=== PATIENT | female | born 1985 | race Caucasian/White ===

== ENCOUNTER 2017-02-05 20:46 | Emergency (ER) | payer BC, OTHER ==
[~2017-02-05] VITALS: Ht 157.5 cm; Wt 94.9 kg
[~2017-02-05 20:46] MED LIST: PREN0.01 PO
[2017-02-05 20:49] VITALS: BP 142/82; PULSE 90; RESP 14; TEMP 98.2; O2SAT 100
--- NOTE | 2017-02-05 21:42 | PD ---
HPI Chief Complaint: Cold / Flu Symptoms Time Seen by Provider: 21:35 Travel History International Travel<30 days: No Contact w/Intl Traveler<30days: No Traveled to known affect area: No History of Present Illness HPI 31-year-old female presents to the emergency department for complaint of fever chills myalgias arthralgias headache sore throat nonproductive cough and fatigue. Patient states symptoms have been present for 3 days. Patient called her doctor's office today after 1 PM in the office was closed so presents now for further evaluation. Patient states that she is scheduled to go to work but could not return to work until she is been evaluated in the hospital. Patient also notes that she has some lymph node prominence to the side of her neck bilaterally. Patient also history is significant for Evonne's thyroiditis and takes no medications. Patient denies dysuria frequency urgency flank pain hematuria and states she is not . Patient rates overall pain 3/10 in intensity. PFSH Past Medical History Narrative Medical Depression, thyroid disease, polycystic ovary syndrome, migraines; left breast cyst excision; no tobacco use Hx Anticoagulant Therapy: No Anxiety: No Depression: Yes (post ) Cancer: No Cardiovascular Problems: No Chemotherapy: No Cerebrovascular Accident: No Diabetes: No Diminished Hearing: No Endocrine: No Medical other: Yes (Hashimotos ) Musculoskeletal: No Neurologic: No Psychiatric: Yes Reproductive: Yes (POLYCYSTIC OVARIAN SYNDROME, bichornuate uterus) Respiratory: No Immunizations Current: Yes Migraines: Yes Tetanus Vaccination: > 5 Years Influenza Vaccination: No ?: Unknown LMP: Two months ago : 2 Para: 2 Ovarian Cysts: Yes Past Surgical History Section: Yes Other Surgery: Yes (left breast cysts removed) Social History Alcohol Use: No Tobacco Use: No Substance Use: No Allergies-Medications (Allergen,Severity, Reaction): Coded Allergies: Bactrim (Verified Allergy, Severe, HIVES, 02/05/17) Reported Meds & Prescriptions Reported Meds & Active Scripts Active Review of Systems Except as stated in HPI: all other systems reviewed are Neg General / Constitutional: Positive: Fever HENT: Positive: Headaches, Sore Throat, Congestion, Masses Cardiovascular: No: Chest Pain or Discomfort (lymph nodes) Respiratory: Positive: Cough, No: Shortness of Breath Gastrointestinal: Positive: Nausea, No: Vomiting, Abdominal Pain Genitourinary: No: Dysuria, Flank Pain Musculoskeletal: Positive: Myalgias, Arthralgias Skin: No Rash Neurologic: No: Weakness Psychiatric: No: Anxiety Hematologic/Lymphatic: Positive: Lymph Node Enlargement Physical Exam Narrative GENERAL: Well-developed well-nourished female in no acute distress no respiratory distress SKIN: Warm and dry. HEAD: Normocephalic. EYES: No scleral icterus. No injection or drainage. NECK: Supple, trachea midline. No JVD.bilateral anterior cervical chain lymphadenopathy; no palpable thyromegaly. CARDIOVASCULAR: Regular rate and rhythm without murmurs, gallops, or rubs. RESPIRATORY: Breath sounds equal bilaterally. No accessory muscle use. GASTROINTESTINAL: Abdomen soft, non-tender, nondistended. MUSCULOSKELETAL: No cyanosis, or edema. BACK: Nontender without obvious deformity. No CVA tenderness. Data Data Last Documented VS Vital Signs Date Time Temp Pulse Resp B/P Pulse Ox O2 Delivery O2 Flow Rate FiO2 02/05/17 22:00 81 18 138/77 100 Room Air 02/05/17 20:49 98.2 Orders Complete Blood Count With Diff (02/05/17 21:35) Basic Metabolic Panel (Bmp) (02/05/17 21:35) Monoscreen (02/05/17 21:35) Group A Rapid Strep Screen (02/05/17 21:35) Influenzae A/B Antigen (02/05/17 21:35) Chest, Single Ap (02/05/17 21:35) Iv Access Insert/Monitor (02/05/17 21:35) Oximetry (02/05/17 21:35) Sodium Chloride 0.9% Flush (Ns Flush) (02/05/17 21:45) Ed Urine Pregnancytest Poc (02/05/17 21:35) Thyroid Stimulating Hormone (02/05/17 21:35) Strep Culture (Group A) (02/05/17 21:45) Labs Laboratory Tests Test 02/05/17 21:50 White Blood Count 10.1 TH/MM3 Red Blood Count 4.95 MIL/MM3 Hemoglobin 13.0 GM/DL Hematocrit 39.1 % Mean Corpuscular Volume 79.0 FL Mean Corpuscular Hemoglobin 26.2 PG Mean Corpuscular Hemoglobin 33.2 % Concent Red Cell Distribution Width 14.5 % Platelet Count 406 TH/MM3 Mean Platelet Volume 6.6 FL Neutrophils (%) (Auto) 47.5 % Lymphocytes (%) (Auto) 35.0 % Monocytes (%) (Auto) 14.5 % Eosinophils (%) (Auto) 2.6 % Basophils (%) (Auto) 0.4 % Neutrophils # (Auto) 4.8 TH/MM3 Lymphocytes # (Auto) 3.5 TH/MM3 Monocytes # (Auto) 1.5 TH/MM3 Eosinophils # (Auto) 0.3 TH/MM3 Basophils # (Auto) 0.0 TH/MM3 CBC Comment DIFF FINAL Differential Comment Sodium Level 141 MEQ/L Potassium Level 3.6 MEQ/L Chloride Level 105 MEQ/L Carbon Dioxide Level 28.3 MEQ/L Anion Gap 8 MEQ/L Blood Urea Nitrogen 14 MG/DL Creatinine 0.62 MG/DL Estimat Glomerular Filtration 113 ML/MIN Rate Random Glucose 93 MG/DL Calcium Level 9.0 MG/DL Thyroid Stimulating Hormone 3.230 uIU/ML 3rd Gen Monoscreen NEG MDM Medical Decision Making Medical Screen Exam Complete: Yes Emergency Medical Condition: Yes Medical Record Reviewed: Yes Interpretation(s) poc hcg: negative rsa: negative influenza: negative tsh: wnl, 3.230 monospot: negative Last Impressions Chest X-Ray 02/05/172134 Signed Impressions: Service Date/Time: Sunday, February 05, 2017 22:09 - CONCLUSION: No evidence of acute cardiopulmonary disease. Brett Garcia MD CBC & BMP Diagram 02/05/17 21:50 Vital Signs Date Time Temp Pulse Resp B/P Pulse Ox O2 Delivery O2 Flow Rate FiO2 02/05/17 22:00 81 18 138/77 100 Room Air 02/05/17 21:50 100 Room Air 02/05/17 21:28 18 100 Room Air 02/05/17 20:49 98.2 90 14 142/82 100 Differential Diagnosis Upper respiratory infection, viral syndrome, to consider strep pharyngitis, mononucleosis, influenza, thyroid dysfunction, , UTI Narrative Course IV access obtained specimens questions sent for resulting At 10:35 PM patient resting comfortably waiting pending lab work; to this point lab values grossly normal range except for mild monocytosis by CBC with automated differential, metabolic panel within normal limits TSH within normal range reported. HCG is negative influenza test negative Chest x-ray no lobar infiltrate Patient resting comfortably voicing no concerns or complaints It is now 11:35 PM lab values are resulted and found to be grossly normal range Monospot is negative Patient is clinically stable for outpatient management and follow-up with her primary care provider Diagnosis Primary Impression: URI (upper respiratory infection) Qualified Code: J06.9 - Upper respiratory tract infection, unspecified type Referrals: Primary Care Physician call for appointment Patient Instructions: General Instructions Departure Forms: Tests/Procedures, Work Release Special Instructions: no work x 1 day Additional Instructions: Increase fluid hydration Take acetaminophen/Tylenol as needed for fever 100.4F or greater May take ibuprofen/Advil/Motrin every 6-8 hours as needed for fever 100.4F or greater for pain associated with inflammation Follow-up with primary care provider call office on Wednesday Return to the emergency department for any concerns or change in condition Med/Other Pt SpecificInfo: No Meds Exist/No RX given Disposition: DISCHARGE HOME Condition: Stable Genet Prajapati MD February 05, 2017 21:42
[2017-02-05] MEDS ORDERED: SODIUM CHLORIDE 0.9% FLUSH 10 ML FLUSH IVF PRN (21:45)
[2017-02-05 21:50] VITALS: O2SAT 100
[2017-02-05 22:00] VITALS: BP 138/77; PULSE 81; RESP 18; O2SAT 100
[2017-02-05 22:05] LABS: AUTOMATED NEUTROPHIL # 4.8 TH/MM3 (1.8-7.7); BASOPHIL % 0.4 % (0.0-2.0); EOSINOPHIL # 0.3 TH/MM3 (0-0.4); EOSINOPHIL % 2.6 % (0.0-4.0); HEMATOCRIT 39.1 % (35.0-46.0); HEMO FLAGS DIFF FINAL; LYMPHOCYTE # 3.5 TH/MM3 (1.0-4.8); MEAN CORPUSCULAR HEMOGLOBIN 26.2 PG (27.0-34.0); MEAN CORPUSCULAR HGB CONC 33.2 % (32.0-36.0); MONO % 14.5 % (0.0-8.0); NEUT % 47.5 % (16.0-70.0); PLATELET COUNT 406 TH/MM3 (150-450); RED BLOOD COUNT 4.95 MIL/MM3 (4.00-5.30); RED CELL DISTRIBUTION WIDTH 14.5 % (11.6-17.2); WHITE BLOOD COUNT 10.1 TH/MM3 (4.0-11.0)
[2017-02-05 22:11] LABS: POTASSIUM 3.6 MEQ/L (3.5-5.1)
[2017-02-05 22:14] LABS: BICARBONATE 28.3 MEQ/L (21.0-32.0)
--- NOTE | 2017-02-05 22:16 | RADHPO ---
EXAM DATE/TIME: 02/05/2017 22:09 [facility] COMPARISON: No previous studies available for comparison. INDICATIONS : Fever. MEDICAL HISTORY : None. SURGICAL HISTORY : Left breast lumpectomy ENCOUNTER: Initial ACUITY: 3 days PAIN SCORE: 4/10 LOCATION: Bilateral chest FINDINGS: A single view of the chest demonstrates the lungs to be symmetrically aerated without evidence of mas s, infiltrate or effusion. The cardiomediastinal contours are unremarkable. Osseous structures are intact. CONCLUSION: No evidence of acute cardiopulmonary disease. Brett Garcia MD on February 05, 2017 at 22:13 Board Certified Radiologist. This report was verified electronically.
[2017-02-05 23:53] VITALS: BP 131/76
== END 2017-02-05 23:54 | disposition home or self-care (01) ==
LOC: PHED 20:46
DX: J06.9 Acute upper respiratory infection, unspecified (principal); E28.2 Polycystic ovarian syndrome; E07.9 Disorder of thyroid, unspecified; E06.3 Autoimmune thyroiditis
CPT/HCPCS: 71010; 80048; 84443; 84703; 85025; 86308; 87081; 87804; 87880; 99283

== ENCOUNTER 2017-06-06 19:31 | Emergency (ER) | payer OTHER ==
[~2017-06-06] VITALS: Ht 157.5 cm; Wt 96.9 kg
[2017-06-06 20:01] VITALS: BP 135/71; PULSE 77; RESP 18; TEMP 98; O2SAT 99
[2017-06-06] MEDS ORDERED: ASPI81CH37 CHEW (20:21)
[2017-06-06] MEDS ORDERED: LEVO25TA4 PO (20:21)
--- NOTE | 2017-06-06 20:27 | PD ---
HPI Chief Complaint: chest pain since February Time Seen by Provider: 20:13 Travel History International Travel<30 days: No Contact w/Intl Traveler<30days: No Traveled to known affect area: No History of Present Illness HPI The patient is a 31-year-old female that complains of chest pain since February. The pain lasts several seconds, is in the mid upper sternal area and feels like someone is sitting on her chest. She denies any nausea, shortness of breath, diaphoresis or radiation of pain. She does not have a history of heart disease and an early age among her family members, hypertension, diabetes or elevated cholesterol. She has been worked up by rn hospital and apparently nothing was found. She also states she gets lightheaded-no vertigo. She also noticed that occasionally her heart beats fast but she thinks this may be anxiety. She states she is under stress working for [employer]. PFSH Past Medical History Hx Anticoagulant Therapy: No Anxiety: No Depression: Yes (post ) Cancer: No Cardiovascular Problems: No Chemotherapy: No Cerebrovascular Accident: No Diabetes: No Diminished Hearing: No Endocrine: No Musculoskeletal: No Neurologic: No Psychiatric: Yes Reproductive: Yes (POLYCYSTIC OVARIAN SYNDROME, bichornuate uterus) Respiratory: No Immunizations Current: Yes Migraines: Yes : 2 Para: 2 Ovarian Cysts: Yes Past Surgical History Section: Yes Other Surgery: Yes (left breast cysts removed) Social History Alcohol Use: No Tobacco Use: No Substance Use: No Allergies-Medications (Allergen,Severity, Reaction): Coded Allergies: sulfamethoxazole (Unverified Allergy, Severe, HIVES, 06/06/17) Reported Meds & Prescriptions Reported Meds & Active Scripts Active Vistaril (Hydroxyzine Pamoate) 25 Mg Cap 25 Mg PO TID PRN Reported Aspirin Low Dose (Aspirin) 81 Mg Chew 81 Mg CHEW DAILY PRN Levothyroxine (Levothyroxine Sodium) 25 Mcg Tab 25 Mcg PO DAILY Review of Systems Except as stated in HPI: all other systems reviewed are Neg Physical Exam Narrative GENERAL: The patient appears slightly anxious, alert, oriented 3 in no apparent distress. Her vital signs are normal. SKIN: Focused skin assessment warm/dry. No skin rash is present. HEAD: Atraumatic. Normocephalic. EYES: Pupils equal and round. No scleral icterus. No injection or drainage. ENT: No nasal bleeding or discharge. Mucous membranes pink and moist. NECK: Trachea midline. No JVD. CARDIOVASCULAR: Regular rate and rhythm. No murmur appreciated. RESPIRATORY: No accessory muscle use. Clear to auscultation. Breath sounds equal bilaterally. I cannot reproduce the chest pain by pressing on the chest wall. GASTROINTESTINAL: Abdomen soft, non-tender, nondistended. Hepatic and splenic margins not palpable. MUSCULOSKELETAL: No obvious deformities. No clubbing. No cyanosis. No edema. NEUROLOGICAL: Awake and alert. No obvious cranial nerve deficits. Motor grossly within normal limits. Normal speech. PSYCHIATRIC: The patient appears slightly anxious; insight and judgment normal. Data Data Last Documented VS Vital Signs Date Time Temp Pulse Resp B/P (MAP) Pulse Ox O2 Delivery O2 Flow Rate FiO2 06/06/17 20:51 87 17 118/67 (84) 99 06/06/17 20:01 98.0 Orders Orders Electrocardiogram (06/06/17 20:21) Complete Blood Count With Diff (06/06/17 20:21) Basic Metabolic Panel (Bmp) (06/06/17 20:21) Troponin I (06/06/17 20:21) Labs Laboratory Tests Test 06/06/17 20:32 White Blood Count 12.4 TH/MM3 Red Blood Count 4.81 MIL/MM3 Hemoglobin 13.2 GM/DL Hematocrit 39.3 % Mean Corpuscular Volume 81.7 FL Mean Corpuscular Hemoglobin 27.4 PG Mean Corpuscular Hemoglobin Concent 33.5 % Red Cell Distribution Width 13.4 % Platelet Count 430 TH/MM3 Mean Platelet Volume 6.7 FL Neutrophils (%) (Auto) 58.0 % Lymphocytes (%) (Auto) 31.6 % Monocytes (%) (Auto) 6.2 % Eosinophils (%) (Auto) 3.3 % Basophils (%) (Auto) 0.9 % Neutrophils # (Auto) 7.2 TH/MM3 Lymphocytes # (Auto) 3.9 TH/MM3 Monocytes # (Auto) 0.8 TH/MM3 Eosinophils # (Auto) 0.4 TH/MM3 Basophils # (Auto) 0.1 TH/MM3 CBC Comment DIFF FINAL Differential Comment Blood Urea Nitrogen 14 MG/DL Creatinine 0.65 MG/DL Random Glucose 92 MG/DL Calcium Level 9.4 MG/DL Sodium Level 137 MEQ/L Potassium Level 4.0 MEQ/L Chloride Level 103 MEQ/L Carbon Dioxide Level 27.1 MEQ/L Anion Gap 7 MEQ/L Estimat Glomerular Filtration Rate 107 ML/MIN Troponin I LESS THAN 0.02 NG/ML MDM Medical Decision Making Medical Screen Exam Complete: Yes Emergency Medical Condition: Yes Medical Record Reviewed: Yes Interpretation(s) The EKG shows a sinus rhythm with a rate of [address] elevation or depression. The basic metabolic profile is normal and the troponin I is normal. The CBC is normal except for a minimal elevation of the white count at 12,400. Differential Diagnosis Atypical chest pain, acute cord syndrome-unlikely, chest wall pain, pleuritic pain, esophageal pain, gastrointestinal pain Narrative Course The patient's chest pain is atypical in that it is lasting only several seconds. Her cardiac enzymes are normal and EKG is normal. She has no significant risk factors. The patient also has anxiety Impression: Atypical chest pain, anxiety Diagnosis Primary Impression: Atypical chest pain Additional Impression: Anxiety about health Additional Instructions: The Vistaril is one tablet 3 times a day as needed for anxiety. Follow up with your primary care physician next week. Med/Other Pt SpecificInfo: Prescription(s) given Scripts Hydroxyzine Pamoate (Vistaril) 25 Mg Cap 25 MG PO TID Y for ANXIETY, #30 CAP 0 Refills Prov: Spenser Bella MD 06/06/17 Disposition: 01 DISCHARGE HOME Condition: Stable Spenser Bella MD Jun 06, 2017 20:27
[2017-06-06 20:41] LABS: AUTOMATED NEUTROPHIL # 7.2 TH/MM3 (1.8-7.7); BASOPHIL # 0.1 TH/MM3 (0-0.2); BASOPHIL % 0.9 % (0.0-2.0); EOSINOPHIL # 0.4 TH/MM3 (0-0.4); EOSINOPHIL % 3.3 % (0.0-4.0); HEMATOCRIT 39.3 % (35.0-46.0); HEMO FLAGS DIFF FINAL; LYMPH % 31.6 % (9.0-44.0); LYMPHOCYTE # 3.9 TH/MM3 (1.0-4.8); MEAN CELL VOLUME 81.7 FL (80.0-100.0); MEAN CORPUSCULAR HEMOGLOBIN 27.4 PG (27.0-34.0); MEAN CORPUSCULAR HGB CONC 33.5 % (32.0-36.0); MONO % 6.2 % (0.0-8.0); PLATELET COUNT 430 TH/MM3 (150-450); RED BLOOD COUNT 4.81 MIL/MM3 (4.00-5.30); RED CELL DISTRIBUTION WIDTH 13.4 % (11.6-17.2); WHITE BLOOD COUNT 12.4 TH/MM3 (4.0-11.0)
[2017-06-06 20:51] VITALS: BP 118/67; PULSE 87; RESP 17; O2SAT 99
[2017-06-06 20:55] LABS: CHLORIDE 103 MEQ/L (98-107); SODIUM (NA) 137 MEQ/L (136-145)
[2017-06-06 20:58] LABS: ANION GAP 7 MEQ/L (5-15); BICARBONATE 27.1 MEQ/L (21.0-32.0); BLOOD UREA NITROGEN 14 MG/DL (7-18)
[2017-06-06 21:01] LABS: GLOMERULAR FILTRATION RATE 107 ML/MIN (>89)
[2017-06-06] MEDS ORDERED: VIST25CA PO (21:20)
[2017-06-06 21:50] VITALS: BP 118/62; PULSE 76; RESP 17; TEMP 98.3; O2SAT 100
--- NOTE | 2017-06-07 20:08 | EKG ---
Date Performed: 06/06/2017 Time Performed: 20:27:34 PTAGE: 31 years EKG: Sinus rhythm POSSIBLE LEFT ATRIAL ENLARGEMENT POSSIBLE RIGHT VENTRICULAR CONDUCTION DELAY BORDERLINE ECG PREVIOUS TRACING : 12/29/2009 21.23 DOCTOR: Paolo Stewart Interpretating Date/Time 06/07/2017 20:05:11
== END 2017-06-06 22:04 | disposition home or self-care (01) ==
LOC: PHED 19:31
DX: R07.89 Other chest pain (principal); F41.9 Anxiety disorder, unspecified
CPT/HCPCS: 80048; 84484; 85025; 93005; 99284

== ENCOUNTER 2017-09-19 09:47 | Emergency (ER) | payer OTHER ==
[~2017-09-19] VITALS: Ht 157.5 cm; Wt 95.7 kg
[~2017-09-19 09:47] MED LIST changes: +ASPI81CH6 CHEW; +LEVO25TA4 PO; -PREN0.01 PO; +VIST25CA PO
[2017-09-19 09:57] VITALS: BP 139/70; PULSE 109; RESP 16; TEMP 98.5; O2SAT 97
[2017-09-19 12:15] VITALS: O2SAT 98
[2017-09-19] MEDS ORDERED: SODIUM CHLOR 0.9% 1000 ML INJ 1,000 ML IV SCH (12:17)
--- NOTE | 2017-09-19 12:21 | PD ---
HPI Chief Complaint: GI Complaint Time Seen by Provider: 12:11 Travel History International Travel<30 days: No Contact w/Intl Traveler<30days: No Traveled to known affect area: No History of Present Illness HPI The patient is a 31-year-old female who presents to the emergency department for nausea, vomiting, diarrhea, and intermittent crampy abdominal pain that started last night at 6 PM. The patient states she went to dinner last night, had shrimp, then developed symptoms. However, she states her had similar food with no symptoms. The patient developed some epigastric abdominal pain that was followed by nausea and vomiting and then subsequently developed diarrhea. The patient describes his vomiting is nonbloody, nonbilious and the diarrhea has no visible blood. The abdominal cramping is intermittent. She does have a history of 2 previous sections. She does complain of subjective fever at home and states her checked her temperature which was 100.6. She denies any known sick contacts. She denies any history of Crohn's disease, ulcerative colitis, or previous episodes of colitis. Symptoms are moderate without any alleviating or exacerbating factors. The patient also complains of a mild headache and myalgias. PFSH Past Medical History Hx Anticoagulant Therapy: No Anxiety: No Depression: Yes (post ) Cancer: No Cardiovascular Problems: No Chemotherapy: No Cerebrovascular Accident: No Diabetes: No Diminished Hearing: No Endocrine: No Musculoskeletal: No Neurologic: No Psychiatric: Yes Reproductive: Yes (POLYCYSTIC OVARIAN SYNDROME, bichornuate uterus) Respiratory: No Immunizations Current: Yes Migraines: Yes Thyroid Disease: Yes (Hoshimotos) ?: Not : 2 Para: 2 Ovarian Cysts: Yes Past Surgical History Section: Yes Gynecologic Surgery: Yes (2 c-sections) Other Surgery: Yes (left breast cysts removed - non-mailignant) Social History Alcohol Use: No Tobacco Use: No Substance Use: No Allergies-Medications (Allergen,Severity, Reaction): Coded Allergies: sulfamethoxazole (Unverified Allergy, Severe, HIVES, 09/19/17) Reported Meds & Prescriptions Reported Meds & Active Scripts Active Review of Systems Except as stated in HPI: all other systems reviewed are Neg General / Constitutional: Positive: Fever Cardiovascular: No: Chest Pain or Discomfort Respiratory: No: Shortness of Breath Gastrointestinal: Positive: Nausea, Vomiting, Diarrhea, Abdominal Pain Genitourinary: No: Dysuria Musculoskeletal: Positive: Myalgias, Weakness Neurologic: No: Dizziness Physical Exam Narrative GENERAL: Awake, alert, pleasant 31-year-old female who appears her stated age and is in no acute respiratory distress. SKIN: Focused skin assessment warm/dry. HEAD: Atraumatic. Normocephalic. EYES: Pupils equal and round. No scleral icterus. No injection or drainage. ENT: No nasal bleeding or discharge. Dry mucous membranes. NECK: Trachea midline. No JVD. CARDIOVASCULAR: Regular, tachycardic with a heart rate of 105. RESPIRATORY: No accessory muscle use. Clear to auscultation. Breath sounds equal bilaterally. GASTROINTESTINAL: Abdomen soft, mild epigastric tenderness. No guarding or rigidity. Negative Willis's. Negative McBurney's. MUSCULOSKELETAL: No obvious deformities. No clubbing. No cyanosis. No edema. NEUROLOGICAL: Awake and alert. No obvious cranial nerve deficits. Motor grossly within normal limits. Normal speech. PSYCHIATRIC: Appropriate mood and affect; insight and judgment normal. Data Data Last Documented VS Vital Signs Date Time Temp Pulse Resp B/P (MAP) Pulse Ox O2 Delivery O2 Flow Rate FiO2 09/19/17 09:57 98.5 109 16 139/70 (93) 97 Orders Orders Complete Blood Count With Diff (09/19/17 12:17) Comprehensive Metabolic Panel (09/19/17 12:17) Lipase (09/19/17 12:17) Urinalysis - C+S If Indicated (09/19/17 12:17) Iv Access Insert/Monitor (09/19/17 12:17) Ecg Monitoring (09/19/17 12:17) Oximetry (09/19/17 12:17) Ondansetron Inj (Zofran Inj) (09/19/17 12:30) Sodium Chlor 0.9% 1000 Ml Inj (Ns 1000 M (09/19/17 12:17) Sodium Chloride 0.9% Flush (Ns Flush) (09/19/17 12:30) Famotidine Inj (Pepcid Inj) (09/19/17 12:30) Ketorolac Inj (Toradol Inj) (09/19/17 12:30) Sodium Chlor 0.9% 1000 Ml Inj (Ns 1000 M (09/19/17 12:30) Potassium Chloride (Kcl) (09/19/17 13:45) Labs Laboratory Tests Test 09/19/17 12:45 White Blood Count 13.8 TH/MM3 Red Blood Count 5.01 MIL/MM3 Hemoglobin 13.7 GM/DL Hematocrit 40.8 % Mean Corpuscular Volume 81.3 FL Mean Corpuscular Hemoglobin 27.3 PG Mean Corpuscular Hemoglobin Concent 33.6 % Red Cell Distribution Width 12.9 % Platelet Count 331 TH/MM3 Mean Platelet Volume 7.6 FL Neutrophils (%) (Auto) 79.0 % Lymphocytes (%) (Auto) 10.7 % Monocytes (%) (Auto) 6.8 % Eosinophils (%) (Auto) 0.0 % Basophils (%) (Auto) 3.5 % Neutrophils # (Auto) 10.9 TH/MM3 Lymphocytes # (Auto) 1.5 TH/MM3 Monocytes # (Auto) 0.9 TH/MM3 Eosinophils # (Auto) 0.0 TH/MM3 Basophils # (Auto) 0.5 TH/MM3 CBC Comment DIFF FINAL Differential Comment Urine Collection Type CLEAN CATCH Urine Color YELLOW Urine Turbidity SLIGHT Urine pH 6.0 Urine Specific [place] 1.032 Urine Protein TRACE mg/dL Urine Glucose (UA) NEG mg/dL Urine Ketones NEG mg/dL Urine Occult Blood MOD Urine Nitrite NEG Urine Bilirubin NEG Urine Leukocyte Esterase NEG Urine RBC 20-24 /hpf Urine WBC 0-2 /hpf Urine Squamous Epithelial Cells > 8 /hpf Urine Amorphous Sediment MOD Microscopic Urinalysis Comment CULT NOT INDICATED Urine Collection Time 1248 Blood Urea Nitrogen 11 MG/DL Creatinine 0.77 MG/DL Random Glucose 109 MG/DL Total Protein 8.9 GM/DL Albumin 3.9 GM/DL Calcium Level 8.8 MG/DL Alkaline Phosphatase 124 U/L Aspartate Amino Transf (AST/SGOT) 15 U/L Alanine Aminotransferase (ALT/SGPT) 28 U/L Total Bilirubin 0.9 MG/DL Sodium Level 135 MEQ/L Potassium Level 3.3 MEQ/L Chloride Level 100 MEQ/L Carbon Dioxide Level 25.6 MEQ/L Anion Gap 9 MEQ/L Estimat Glomerular Filtration Rate 88 ML/MIN Lipase 89 U/L MDM Medical Decision Making Medical Screen Exam Complete: Yes Emergency Medical Condition: Yes Medical Record Reviewed: Yes Interpretation(s) Laboratory Tests Test 09/19/17 12:45 White Blood Count 13.8 TH/MM3 Red Blood Count 5.01 MIL/MM3 Hemoglobin 13.7 GM/DL Hematocrit 40.8 % Mean Corpuscular Volume 81.3 FL Mean Corpuscular Hemoglobin 27.3 PG Mean Corpuscular Hemoglobin Concent 33.6 % Red Cell Distribution Width 12.9 % Platelet Count 331 TH/MM3 Mean Platelet Volume 7.6 FL Neutrophils (%) (Auto) 79.0 % Lymphocytes (%) (Auto) 10.7 % Monocytes (%) (Auto) 6.8 % Eosinophils (%) (Auto) 0.0 % Basophils (%) (Auto) 3.5 % Neutrophils # (Auto) 10.9 TH/MM3 Lymphocytes # (Auto) 1.5 TH/MM3 Monocytes # (Auto) 0.9 TH/MM3 Eosinophils # (Auto) 0.0 TH/MM3 Basophils # (Auto) 0.5 TH/MM3 CBC Comment DIFF FINAL Differential Comment Urine Collection Type CLEAN CATCH Urine Color YELLOW Urine Turbidity SLIGHT Urine pH 6.0 Urine Specific [place] 1.032 Urine Protein TRACE mg/dL Urine Glucose (UA) NEG mg/dL Urine Ketones NEG mg/dL Urine Occult Blood MOD Urine Nitrite NEG Urine Bilirubin NEG Urine Leukocyte Esterase NEG Urine RBC 20-24 /hpf Urine WBC 0-2 /hpf Urine Squamous Epithelial Cells > 8 /hpf Urine Amorphous Sediment MOD Microscopic Urinalysis Comment CULT NOT INDICATED Urine Collection Time 1248 Blood Urea Nitrogen 11 MG/DL Creatinine 0.77 MG/DL Random Glucose 109 MG/DL Total Protein 8.9 GM/DL Albumin 3.9 GM/DL Calcium Level 8.8 MG/DL Alkaline Phosphatase 124 U/L Aspartate Amino Transf (AST/SGOT) 15 U/L Alanine Aminotransferase (ALT/SGPT) 28 U/L Total Bilirubin 0.9 MG/DL Sodium Level 135 MEQ/L Potassium Level 3.3 MEQ/L Chloride Level 100 MEQ/L Carbon Dioxide Level 25.6 MEQ/L Anion Gap 9 MEQ/L Estimat Glomerular Filtration Rate 88 ML/MIN Lipase 89 U/L Differential Diagnosis Differential diagnosis includes gastroenteritis, food poisoning, gastritis, enteritis, colitis, influenza, viral syndrome. Narrative Course IV was established, labs are drawn and sent, and the patient was placed on cardiac telemetry monitoring and continuous pulse oximetry monitoring. The patient was administered 2 L of IV fluids, Zofran, Pepcid, and Toradol. The patient's potassium was low at 3.3, therefore, was replaced orally. White count is mildly elevated at 13.8. LFTs and lipase are unremarkable. UA reveals a few RBCs, no evidence of pyelonephritis. The patient was reevaluated at 1:27 PM. The patient's symptoms have improved, she will be discharged home on Zofran is advised to have a clear liquid diet and advance as tolerated. The patient states she works for [employer] and must have a work excuse for 7 consecutive workdays, otherwise it will count against her. Therefore, patient will be given a work excuse for one week. She is advised to have clear liquids , advance as tolerated, Zofran as needed, plenty of fluids to stay hydrated. Return if symptoms worsen or progress. Diagnosis Primary Impression: Gastroenteritis Patient Instructions: General Instructions Additional Instructions: Work excuse for 1 week's duration. Plenty fluids to stay hydrated. Clear liquid diet and advance as tolerated. Follow-up with a primary physician. Return if symptoms worsen or progress. Med/Other Pt SpecificInfo: Prescription(s) given Scripts Ondansetron Odt (Zofran Odt) 4 Mg Tab 4 MG SL Q6HR Y for Nausea/Vomiting, #10 TAB 0 Refills Prov: Tai Dillon MD 09/19/17 Disposition: 01 DISCHARGE HOME Condition: Stable Tai Dillon MD Sep 19, 2017 12:21
[2017-09-19] MEDS ORDERED: SODIUM CHLOR 0.9% 1000 ML INJ 1,000 ML IV ONE (12:30)
[2017-09-19] MEDS ORDERED: FAMOTIDINE 20 MG/2 ML VIAL IV PUSH ONE (12:30)
[2017-09-19] MEDS ORDERED: SODIUM CHLORIDE 0.9% FLUSH 10 ML FLUSH IV FLUSH PRN (12:30)
[2017-09-19] MEDS ORDERED: KETOROLAC TROMETHAMINE 30 MG/ML (IVP) VIAL IVP ONE (12:30)
[2017-09-19] MEDS ORDERED: ONDANSETRON HCL 4 MG/2 ML VIAL IVP ONE (12:30)
[2017-09-19 12:57] LABS: AUTOMATED NEUTROPHIL # 10.9 TH/MM3 (1.8-7.7); BASOPHIL # 0.5 TH/MM3 (0-0.2); BASOPHIL % 3.5 % (0.0-2.0); HEMATOCRIT 40.8 % (35.0-46.0); HEMOGLOBIN 13.7 GM/DL (11.6-15.3); LYMPH % 10.7 % (9.0-44.0); LYMPHOCYTE # 1.5 TH/MM3 (1.0-4.8); MEAN CELL VOLUME 81.3 FL (80.0-100.0); MEAN CORPUSCULAR HEMOGLOBIN 27.3 PG (27.0-34.0); MEAN CORPUSCULAR HGB CONC 33.6 % (32.0-36.0); MEAN PLATELET VOLUME 7.6 FL (7.0-11.0); MONO % 6.8 % (0.0-8.0); MONOCYTE # 0.9 TH/MM3 (0-0.9); PLATELET COUNT 331 TH/MM3 (150-450); RED BLOOD COUNT 5.01 MIL/MM3 (4.00-5.30); RED CELL DISTRIBUTION WIDTH 12.9 % (11.6-17.2); WHITE BLOOD COUNT 13.8 TH/MM3 (4.0-11.0)
[2017-09-19 13:08] LABS: BILIRUBIN, URINE NEG (NEG); BLOOD, URINE MOD (NEG); CHLORIDE 100 MEQ/L (98-107); GLUCOSE,URINE NEG (NEG); KETONE, URINE NEG (NEG); NITRITE,URINE NEG (NEG); SODIUM (NA) 135 MEQ/L (136-145); URINE LEUKOCYTE ESTERASE NEG (NEG)
[2017-09-19 13:13] LABS: ALBUMIN 3.9 GM/DL (3.4-5.0); BICARBONATE 25.6 MEQ/L (21.0-32.0); BLOOD UREA NITROGEN 11 MG/DL (7-18); CALCIUM 8.8 MG/DL (8.5-10.1); GLUCOSE,RANDOM 109 MG/DL (74-106); LIPASE 89 U/L (73-393)
[2017-09-19 13:16] LABS: ALT (GPT) 28 U/L (10-53); AST (GOT) 15 U/L (15-37); CREATININE 0.77 MG/DL (0.50-1.00); GLOMERULAR FILTRATION RATE 88 ML/MIN (>89)
[2017-09-19 13:18] LABS: TOTAL BILIRUBIN ADULT 0.9 MG/DL (0.2-1.0); TOTAL PROTEIN 8.9 GM/DL (6.4-8.2)
[2017-09-19 13:19] LABS: ALKALINE PHOSPHATASE 124 U/L (45-117)
[2017-09-19 13:22] LABS: URINE COLOR YELLOW (YELLW/STRAW); WBC, URINE 0-2 /hpf (0-5)
[2017-09-19 13:23] LABS: AMORPHOUS SEDIMENT, URINE MOD; SQUAMOUS EPITHELIAL CELL URINE > 8 /hpf (0-5)
[2017-09-19] MEDS ORDERED: ZOFR4TAB3 SL (13:34)
[2017-09-19] MEDS ORDERED: POTASSIUM CHLORIDE 20 MEQ CONTROLLED RELEASE TAB PO ONE (13:45)
[2017-09-19 13:50] VITALS: BP 106/54
== END 2017-09-19 13:54 | disposition home or self-care (01) ==
LOC: PHED 09:47
DX: K52.9 Noninfective gastroenteritis and colitis, unspecified (principal); R51 Headache
CPT/HCPCS: 80053; 81001; 83690; 85025; 96361; 96374; 96375; 99284; J1885; J2405; J7030